=== PATIENT | male | born 1995 ===

== ENCOUNTER 2020-03-15 15:10 | Outpatient (CLI) | payer OTHER ==
--- NOTE | 2020-03-15 15:57 | SLEEP CARE CONSULTATION ---
Information from patient questionnaire entered by Brianne Dinh. I have reviewed and concur with the information entered by Brianne Dinh. This document represents the service I personally performed and the decisions made by me, Abner Blanc MD, [facility]. History of Present Illness Service Date and Time: 03/15/2020 1510 Reason for Visit: New patient, Previously diagnosed sleep apnea, sleep apnea on CPAP therapy (*BiPap) Chief Complaint: reports: Fatigue, Other (sleep apnea) Date of Onset: 2016 Usual bedtime: [id number] Time it takes to fall asleep: 1-10 minutes Snores at night: Yes Observed to quit breathing while asleep: Yes Sleeps alone due to snoring: No Number of times waking at night: 0-2 Reasons for waking at night: reports: Bathroom, Other (bloated stomach) Toss, Turn, or Twitch while sleeping: Yes Recalls having dreams: Yes Usually gets out of bed at: 0450 weekday, [id number]+ weekends Feels refreshed in the morning: No Morning headache: Yes (sometimes) Sleepy or fatigued during the day: Yes Ever fallen asleep while driving: No Takes day naps: Yes Dreams during day naps: Yes Prior sleep studies: Yes Year and Where: 2016 [place], [place] Type of Sleep Study: Polysomnography Additional HPI information: I had the pleasure of seeing Mr. Spicer today regarding obstructive sleep apnea-hypopnea. As you know, he is a 24 year old gentleman who was diagnosed with the sleep-disordered breathing at [facility] in [place], [place] in 2017. He recalls the AHI to be 54. He was prescribed a BiPAP set at 12/8 cmH2O. He uses it most of the time. He says it helps with snoring. He complains of aerophagia. Compliance/efficacy report shows usage in 68 out of the past 90 nights, averaging 5.7 hours a night. The > 4 hour compliance rate for the past 30 days is 62%. The residual AHI is 2.0 and average air leak is 0.2 L/minute. He wears a nasal mask. He gets his supplies from [employer]. 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 Patient is and lives in [place]. Have you smoked in the past 12 months: No Alcohol use: Yes Alcohol amount and frequency: occasionally Caffeine use: Yes Caffeine amount and frequency: coffee every day or every other day Family History Family history of sleep disordered breathing: Yes Family Hx Sleep Apnea: Father: Snoring Allergies and Home Medications Drug allergies reviewed: Yes Home medication list reviewed: Yes (Adderall) Review of Systems Cardiovascular: reports: chest pain (depending on sleep position) Respiratory: denies: shortness of breath, wheeze, sputum production, chronic cough, other Gastrointestinal: reports: abdominal pain (only felt with air in belly (basketball belly)) Urinary: denies: incontinence, frequency, urgency, impotence, other Neurological: denies: headaches, seizure, head trauma, disorientation, speech dysfunction, gait or balance problems, fainting or unconsciousness, other Ear/Nose/Throat: reports: nasal congestion, sinus problems (lack of smell), dry mouth/throat (sometimes), wisdom teeth removed (1) Endocrine: reports: sluggishness, unexplained weakness Musculoskeletal: reports: joint pain, mobility problems (only left forarm when rotating) Immunologic: denies: sneezing, rash, itching, allergies to food or environment, other Physical Exam Vital signs obtained and entered by: To minimize the risk of COVID-19 exposure, detailed exam was not performed. Height: 5 ft 10 in Weight: 167 lb Body Mass Index: 23.9 BMI Classification: Healthy weight Impression and Plan IMPRESSION: 1. Obstructive Sleep Apnea-Hypopnea Syndrome, possibly severe, according to the patient. We will try to get hold of his sleep study report from [place]. He has decent BiPAP compliance. The pressure is effective but causes aerophagia. I will lower it. Other treatment options were discussed. Because he reports having enlarged tonsils, I recommend a referral to an ENT. Plan: 1. BiPAP lowered to 9/5 cmH2O. 2. Takes Adderall sparingly. 3. Consider an ENT referral. 4. Prescription made for supplies to set him up with a local DEXMA supplier. 5. Return for a follow up in one month. Visit Type: In Office Other Participants: Spouse/Significant Other Time Spent with Patient (minutes): 15 Provider Statement: I spent 100% of the Face to Face Visit with the patient with greater than 50% spent counseling the patient and coordination of care.
== END 2020-03-15 15:11 | disposition home or self-care (01) ==
LOC: SC 15:10
PROVIDERS: ATTEND Internal Medicine Pulmonary Disease
DX: G47.33 Obstructive sleep apnea (adult) (pediatric) (principal)
CPT/HCPCS: 99203; 99212

== ENCOUNTER 2020-04-12 17:36 | Outpatient (CLI) | payer OTHER ==
--- NOTE | 2020-04-12 10:51 | SLEEP CARE CONSULTATION ---
Information from patient questionnaire entered by Brianne Dinh. I have reviewed and concur with the information entered by Brianne Dinh. This document represents the service I personally performed and the decisions made by me, Clary Lechuga ARNP. History of Present Illness Service Date and Time: 04/12/2020 1020 Previous diagnosis: Severe, Obstructive Sleep Apnea-Hypopnea Syndrome Reason for follow up: other (1 month with pressure change) Equipment type: BiPAP Equipment obtained from: Other (has not got a local supplier yet, has list) Mask style: Nasal Backup mask available: Yes (other mask) Last cushion change: 1 week ago Prior sleep studies: Yes Year and Where: 2016 [place], [place] Type of Sleep Study: Polysomnography HPI additional information: WENCESLAO DAVALOS was diagnosed to have severe, AHI unknown, obstructive sleep apnea-hypopnea syndrome and visits today via Telehealth for BIPAP therapy one month pressure change follow-up. Sleep Study - Results Type of Sleep Study: Polysomnography Prior sleep studies: Yes Year and Where: 2016 [place], [place] CPAP Compliance Data - Data Reviewed with Patient Average duration of nightly device use: 6 hours 24 minutes Compliance rate %: 77 Current pressure setting (cmH2O): 9/5 Average residual AHI: 2.3 Average large leak: 3.1 L/min Subjective Patient concerns: reports: condensation in mask/hose (twice, changed humidity and it improved, changed to 2 from 4). denies: aerophagia, mask discomfort, air blowing in eyes, mask leak noise, nasal congestion, dry mouth, nose, throat, epistaxis, other Observed to snore while using device: No Current pressure setting perceived as: comfortable On therapy, patient: reports: sleeping better, awakening more refreshed, being more awake and alert during the day, more rested overall. denies: drowsiness wh ile driving Initial [place] Sleepiness Scale score: 18 (in 2019) Current [place] Sleepiness Scale score: 18 Allergies and Home Medications Drug allergies reviewed: Yes (NKDA) Home medication list reviewed: Yes (no changes) Review of Systems Review of systems same as previous: Yes (no changes) Physical Exam Vital signs obtained and entered by: Telehealth visit - no vitals obtained Height: 5 ft 10 in Impression and Plan 1. Obstructive Sleep Apnea-Hypopnea Syndrome, severe, with fair treatment compliance and good apnea control. On CPAP therapy, the patient has better sleep quality and is more rested overall. He is doing better with no aerophagia. He did have a couple of times with some condensation in the mask that resolved after he adjusted the humidity from 4 to 2 setting. I asked him about his previous study since I could not find one in his chart. Patient states that he brought a copy of his original sleep study in to our office and they made a copy. I will check with the office staff and see if we have this copy. We will contact patient if he needs to bring his copy in again so we may obtain a copy. Patient also asking about having his tonsils removed. He was advised to consult with his PCP for a referral to an ENT specialist for possible removal of his large tonsils. Patient's apnea severity and rationale for treatment to reduce apnea, improve sleep quality and reduce cardiovascular and cerebrovascular events was reviewed. I also reviewed the benefit of consistent device use of CPAP for his overall health and to reduce risks. * Continue auto BIPAP pressure at 9/5 cmH2O * Follow up with PCP for ENT referral * Notify me if snoring with mask or feeling that the pressure is too much or too little * Attempt to lose weight * Call this office if any problems using BIPAP * Return for follow up in 1 year, or sooner if concerns arise Visit Type: Telehealth Video Video Type: Doximity Patient Location: Home Location of Provider: Home Patient agrees and consents to this telehealth visit type: Yes Patient agrees to have their insurance billed: Yes Time Spent with Patient (minutes): 18 Provider Statement: I spent 100% of the Telehealth Video Call with the patient with greater than 50% spent counseling the patient and coordination of care.
== END 2020-04-12 17:37 | disposition home or self-care (01) ==
LOC: SC 17:36
PROVIDERS: ATTEND Nurse Practitioner Family
DX: G47.33 Obstructive sleep apnea (adult) (pediatric) (principal)

== ENCOUNTER 2021-03-06 22:48 | Emergency (ER) | payer OTHER ==
--- NOTE | 2021-03-06 23:28 | ED Physician Documentation ---
PD HPI CHEST PAIN - Stated complaint Stated Complaint: SOA, CHEST PRESSURE - Chief complaint Chief Complaint: Cardiac - History obtained from History obtained from: Patient - History of Present Illness Timing - onset: How many days ago (2) Timing - details: Abrupt onset, Now resolved, Intermittant Quality: Tightness, Sharp Location: Left chest Radiation: Back Improved by: Rest Worsened by: Inspiration Associated symptoms: No: Shortness of air, Diaphoresis, Palpitations, Cough Similar symptoms before: Has not had sx before Recently seen: Not recently seen - Additional information Additional information: c/o 2 days of episodic left chest pain that radiates around left lateral chest to left upper back. onset has been as frequent at rest as with exertion or activity. Distinct pleuritic component. Patient is not COVID vaccinated. Denies fever, cough, leg swelling. Review of Systems Constitutional: reports: Reviewed and negative Cardiac: reports: Chest pain / pressure. denies: Palpitations, Pedal edema, Calf pain Respiratory: reports: Reviewed and negative Musculoskeletal: denies: Extremity swelling PD PAST MEDICAL HISTORY - Past Medical History Past Medical History: Yes Respiratory: Sleep apnea, CPAP use - Past Surgical History Past Surgical History: No - Present Medications Home Medications: Ambulatory Orders Medication Instructions Recorded Confirmed Dextroamphetamine/Amphetamine 15 mg PO QID 03/06/21 03/06/21 [Adderall 15 mg Tablet] Esomeprazole Magnesium [Nexium 20 mg PO DAILY #14 03/07/21 24Hr] - Allergies Allergies/Adverse Reactions: Allergies Allergy/AdvReac Type Severity Reaction Status Date / Time No Known Drug Allergies Allergy Verified 03/06/21 23:12 - Social History Does the pt smoke?: No Smoking Status: Never smoker Does the pt drink ETOH?: No Does the pt have substance abuse?: No - Immunizations Immunizations are current?: No Immunizations: TDAP current <10years - POLST Patient has POLST: No PD ED PE NORMAL - Vitals Vital signs reviewed: Yes - General General: Alert and oriented X 3, No acute distress, Well developed/nourished - Cardiac Cardiac: RRR, No murmur, No gallop, No rub - Respiratory Respiratory: No respiratory distress, Clear bilaterally - Abdomen Abdomen: Soft, Non tender - Extremities Extremities: No edema Results - Vitals Vitals: Oxygen O2 Source Room air - EKG (time done) No standard instances Rate: Rate (enter#) (86) Rhythm: NSR [place]: Normal Intervals: Normal OR QRS: Normal Ischemia: Normal ST segments - Labs Labs: Laboratory Tests 03/07/21 03/07/21 03/07/21 00:05 00:05 00:05 WBC 8.1 RBC 5.09 Hgb 15.8 Hct 46.3 MCV 91.0 MCH 31.0 MCHC 34.1 RDW 11.5 L Plt Count 304 MPV 9.8 Neut # (Auto) 3.8 Lymph # (Auto) 3.1 [place] # (Auto) 0.8 Eos # (Auto) 0.3 Baso # (Auto) 0.1 Absolute Nucleated RBC 0.00 Nucleated RBC % 0.0 D-Dimer < 200.0 L Sodium 136 Potassium 3.5 Chloride 101 Carbon Dioxide 24 Anion Gap 11.0 BUN 16 Creatinine 1.0 Estimated GFR (MDRD) 90 Glucose 136 H Calcium 9.3 - Rads (name of study) chest xray Radiology: Prelim report reviewed, See rad report PD MEDICAL DECISION MAKING - ED course Complexity details: reviewed results, re-evaluated patient, considered differential, d/w patient ED course: presents with episodic pleuritic left chest pain. Unremarkable work-up including EKG, CXR, blood tests (including D-dimer). No ACS risk factors. He does not have pain at the time of H+P nor on reevaluation. Results d/w patient, advised to follow up with primary care provider. Return precautions reviewed Departure - Departure Disposition: 01 Home, Self Care Clinical Impression: Chest pain Qualifiers: Chest pain type: unspecified Qualified Code(s): R07.9 - Chest pain, unspecified Condition: Good Instructions: ED Chest Pain Atypical Unkn Cause Follow-Up: Natalie Greenwood MD [Primary Care Provider] - Within 3 Days Prescriptions: Esomeprazole Magnesium [Nexium 24Hr] 20 mg PO DAILY #14 Discharge Date/Time: 03/07/21 01:29
[2021-03-07 00:17] LABS: BASOPHILS # (AUTO) 0.1 10^3/uL (0.0-0.1); BASOPHILS % (AUTO) 1.2 %; EOSINOPHILS # (AUTO) 0.3 10^3/uL (0.0-0.7); EOSINOPHILS % (AUTO) 3.3 %; HCT - HEMATOCRIT 46.3 % (42.0-52.0); HGB - HEMOGLOBIN 15.8 g/dL (14.0-18.0); LYMPHOCYTES # (AUTO) 3.1 10^3/uL (1.5-3.5); LYMPHOCYTES % (AUTO) 38.1 %; MEAN CORPUSCULAR HGB CONC 34.1 g/dL (32.0-36.0); MEAN PLATELET VOLUME 9.8 fL (7.4-11.4); MONOCYTES # (AUTO) 0.8 10^3/uL (0.0-1.0); MONOCYTES % (AUTO) 10.1 %; NEUTROPHILS # (AUTO) 3.8 10^3/uL (1.5-6.6); NEUTROPHILS % (AUTO) 46.8 %; PLT - PLATELET COUNT 304 10^3/uL (130-450); RED BLOOD COUNT 5.09 10^6/uL (4.70-6.10); RED CELL DISTRIBUTION WIDTH 11.5 % (12.0-15.0); WHITE BLOOD COUNT 8.1 x10^3/uL (4.8-10.8)
[2021-03-07 00:27] LABS: CALCIUM 9.3 mg/dL (8.5-10.3); POTASSIUM 3.5 mmol/L (3.5-5.0)
[2021-03-07 01:11] VITALS: BP 144/88
--- NOTE | 2021-03-07 09:07 | XRAY Report ---
PROCEDURE: Chest 2 View X-Ray INDICATIONS: left pleuritic chest pain TECHNIQUE: 2 view(s) of the chest. COMPARISON: None. FINDINGS: Surgical changes and devices: None. Lungs and pleura: No pleural effusions or pneumothorax. Lungs are clear. Mediastinum: Mediastinal contours are normal. Heart size is normal. Bones and chest wall: No suspicious bony abnormalities. Soft tissues appear unremarkable. IMPRESSION: No evidence acute pulmonary process. Findings are concordant with preliminary interpretation provided by [facility]. Reviewed by: Anuj Upton MD on 03/07/2021 9:06 AM PDT Approved by: Anuj Upton MD on 03/07/2021 9:06 AM PDT Station ID: [id number]
== END 2021-03-07 01:29 | disposition home or self-care (01) ==
LOC: ED 22:48
DX: R07.89 Other chest pain (principal)
CPT/HCPCS: 36415; 80048; 85025; 85379; 93005; 99284

== ENCOUNTER 2021-09-29 11:05 | Outpatient (CLI) | payer OTHER ==
--- NOTE | 2021-09-29 11:47 | SLEEP CARE CONSULTATION ---
Information from patient questionnaire entered by Nolvia Hurtado MA. I have reviewed and concur with the information entered by Nolvia Hurtado MA. This document represents the service I personally performed and the decisions made by , Clary Lechuga ARNP. History of Present Illness Service Date and Time: 09/29/2021 1105 Previous diagnosis: Severe, Obstructive Sleep Apnea-Hypopnea Syndrome AHI: 34.3 (in 2016) Reason for follow up: annual (LAST SEEN 03/2020,NNOT USING CPAP OFTEN, ) Equipment type: BiPAP Equipment obtained from: Other (has not got a local supplier yet, has list) Mask style: Nasal Backup mask available: Yes (old mask) Prior sleep studies: Yes Year and Where: 2016 [place], [place] Type of Sleep Study: Polysomnography HPI additional information: WENCESLAO SPICER was diagnosed to have severe, AHI 34.3, obstructive sleep apnea- hypopnea syndrome and returned today for BIPAP therapy annual follow-up. Sleep Study - Results Type of Sleep Study: Polysomnography Prior sleep studies: Yes Year and Where: 2016 [place], [place] CPAP Compliance Data - Data Reviewed with Patient Average duration of nightly device use: 5 HOURS 31 MINUTES Compliance rate %: 7 (120 days) Current pressure setting (cmH2O): 9/5 Average residual AHI: 3.6 Central apnea: 1.7 Obstructive apnea: 1.7 Average large leak: 9.5 Compliance data discussion: He does not feel he is getting benefit from the CPAP. He will only use when makes him put on the mask because he is snoring or he is really fatigued. Subjective Missed days of use due to: reports: mask issues Patient concerns: reports: aerophagia (doesn't happen all the time), nasal congestion, dry mouth, nose, throat. denies: mask discomfort, air blowing in eyes, mask leak noise, condensation in mask/hose, epistaxis, other Observed to snore while using device: Yes Current pressure setting perceived as: comfortable On therapy, patient: reports: other (only using on nights he snores loudly due to fatigue). denies: sleeping better, awakening more refreshed, being more awake and alert during the day, more rested overall, drowsiness while driving Initial [place] Sleepiness Scale score: 18 (in 2019) Current [place] Sleepiness Scale score: 17 (09/2021) Allergies and Home Medications Home medication list reviewed: Yes (Adderrall) Allergy and home medication list: Allergies No Known Drug Allergies Allergy (Verified 03/06/21 23:12) Review of Systems Review of systems same as previous: Yes (jaw surgery approval is in process. need an updated sleep study, ()) Physical Exam Vital signs obtained and entered by: domingo hurtado cma aakaterin Blood Pressure: 120/79 (pulse 76, resp 16, right, ) Heart Rate: 77 O2 Saturation: 99 (n95) Height: 5 ft 9 in Weight: 159 lb Body Mass Index: 23.4 BMI Classification: Healthy weight Impression and Plan 1. Obstructive Sleep Apnea-Hypopnea Syndrome, severe, with poor treatment compliance and good apnea control. On BIPAP therapy, the patient has not felt like he gets better sleep or feels more rested. He will only use his device on nights his makes him put it on because he is snoring or if he is really fatigued. He states when he is really tired he seems to snore more. He has been getting aerophagia that wakes him up and is very uncomfortable too. He states he gets some nasal congestion when using the machine and mouth dryness. I asked about sleeping with mouth open and he thinks he may oral vent sometimes and this may add to the aerophagia. I encouraged him to try a chinstrap with his nasal mask to prevent oral venting and reduce aerophagia. Oral dryness and nasal congestion can be reduced by adjusting humidity setting higher or heated hose lower or by adjusting both settings. Verbal instructions given on how to change humidity and heated hose settings with rationale explaining why to change. He voiced understanding and agreement. He states he will continue to try to use the BIPAP. He also informed me he is being evaluated for surgery to correct/treat for his HARRIS. He needs a current sleep study for the surgeon to continue their evaluation for surgery. Mr. Spicer needs supplies to continue to use his BIPAP while waiting for approval on surgery for sleep apnea. I will have my academic services coordinator inform of DME options. A DWO prescription will then be made. Patient advised to contact this office if further supply problems. Patient's apnea severity and rationale for treatment to reduce apnea, improve sleep quality and reduce cardiovascular and cerebrovascular events was reviewed. * Continue BIPAP pressure at 9/5 cmH2O * Order Polysomnography for updated baseline * Transfer DME * Update supplies * Notify me if snoring with mask or feeling that the pressure is too much or too little * Call this office if any problems using BIPAP * Return for follow up after PSG, or sooner if concerns arise Counseling Topics: Spare mask Time Spent with Patient (minutes): 27
[2021-09-29 11:48] VITALS: BP 120/79
== END 2021-09-29 11:06 | disposition home or self-care (01) ==
LOC: SC 11:05
PROVIDERS: ATTEND Nurse Practitioner Family
DX: G47.33 Obstructive sleep apnea (adult) (pediatric) (principal)
CPT/HCPCS: 99212; 99213

== ENCOUNTER 2021-10-09 09:36 | Outpatient (CLI) | payer OTHER | END 2021-10-09 09:37 | disposition home or self-care (01) | LOC: SC 09:36 | PROVIDERS: ATTEND Nurse Practitioner Family | DX: G47.33 Obstructive sleep apnea (adult) (pediatric) (principal); R09.02 Hypoxemia; R00.0 Tachycardia, unspecified | CPT/HCPCS: 95806 ==

== ENCOUNTER 2021-10-27 10:49 | Outpatient (CLI) | payer OTHER ==
[2021-10-27 11:27] VITALS: BP 132/96
--- NOTE | 2021-10-27 11:27 | SLEEP CARE CONSULTATION ---
Information from patient questionnaire entered by Nolvia Reece MA. I have reviewed and concur with the information entered by Nolvia Reece MA. This document represents the service I personally performed and the decisions made by , Clary Lechuga ARNP. History of Present Illness Service Date and Time: 10/27/2021 1049 Accompanied by: Spouse Initial [place] Sleepiness Scale score: 18 (in 2019) Current [place] Sleepiness Scale score: 17 (10/2021) Additional HPI information: WENCESLAO DAVALOS returns for follow up and results of the recently performed home sleep study. I explained the pathophysiology behind obstructive sleep apnea. We then spent quite a bit of time discussing different treatment options. For mild obstructive sleep apnea, surgery and oral appliance are alternatives to nasal CPAP therapy but in moderate or severe cases, nasal CPAP is the most effective and reliable treatment. Because apnea is primarily in supine position, then positional management therapy could be effective. Methods discussed such as positioning with pillows to prevent supine sleep. Patient was cautioned about risks of drowsy driving until sleepiness symptoms resolve. Sleep Study - Results Type of Sleep Study: Home sleep study (F/U HOME STUDY, 10/09/2021 [facility] Prior sleep studies: Yes Year and Where: 2016 [place], [place] Polysomnography/Home Sleep Study results: Physician Impression: The quality of the study is good. The length of the study is adequate (> 240 minutes). Please also see the tabulated and graphic data. 1. Obstructive Sleep Apnea-Hypopnea (ICD-10 G47.33), severe, with an AHI of 41.0/hr and murphy SaO2 of 78%. During the study, the patient had 313 apneas (313 obstructive, 0 central, 0 mixed) and 5 hypopneas. The longest episode lasted 116.5 seconds. The respiratory events occurred almost exclusively during supine sleep (supine AHI was 51.9 and non-supine, 1.20). 2. Hypoxemia (ICD-10 R09.02), moderate, with the lowest oxygen saturation of 78 % and 28.3 minutes with SaO2 under 90%. Baseline oxygen saturation was normal (Average oxygen saturation was 96%). 3. Tachycardia, with maximum recorded heart rate of 133 beats per minute. Allergies and Home Medications Known drug allergies: No Drug allergies reviewed: Yes Home medication list reviewed: Yes (no changes) Allergy and home medication list: Allergies No Known Drug Allergies Allergy (Verified 03/06/21 23:12) Review of Systems Review of systems same as previous: Yes (no changes) Physical Exam Vital signs obtained and entered by: ANILA RIBERA Blood Pressure: 132/96 (LEFT, PULSE 67, RESP 14, ) Cuff size: wrist Heart Rate: 67 O2 Saturation: 98 (PAPER) Height: 5 ft 9 in Weight: 158 lb (WITH CLOTHES) Body Mass Index: 23.3 BMI Classification: Healthy weight Impression and Plan 1. Obstructive Sleep Apnea-Hypopnea Syndrome, severe, with lowest oxygen saturation of 78%. Patient returns for results of sleep study to verify diagnosis prior to sleep apnea surgery. Patient is going to continue to use her BIPAP. He still has some aerophagia in the morning but he started using a wedge pillow and this has improved a little. He states he is not sure if the surgery is going to happen and may have to continue with his BIPAP. I advised to continue with wedge pillow but to let me know if the aerophagia worsens. I recheck his compliance report because at the last visit he was at 7%. He used his device 6/30 days with all being >/= to 4 hours. He averaged 5 hours 45 minutes. His residual AHI is 4.3 and compliance is 20%. I will have him follow up in 1-2 months to recheck his compliance. He voiced agreement and understanding. Patient's apnea severity and rationale for treatment to reduce apnea, improve sleep quality and reduce cardiovascular and cerebrovascular events was reviewed. * Continue BIPAP pressure at 9/5 cmH2O * Notify me if snoring with mask or feeling that the pressure is too much or too little * Maintain a healthy weight * Call this office if any problems using BIPAP * Return for follow up in 1-2 months, or sooner if concerns arise Counseling Topics: Sleeping position, Weight control Visit Type: In Office Other Participants: Spouse/Significant Other Time Spent with Patient (minutes): 24 Provider Statement: I spent 100% of the Face to Face Visit with the patient with greater than 50% spent counseling the patient and coordination of care.
== END 2021-10-27 10:50 | disposition home or self-care (01) ==
LOC: SC 10:49
PROVIDERS: ATTEND Nurse Practitioner Family
DX: G47.33 Obstructive sleep apnea (adult) (pediatric) (principal)
CPT/HCPCS: 99212; 99213

== ENCOUNTER 2022-04-03 16:50 | Outpatient (CLI) | payer OTHER ==
--- NOTE | 2022-04-04 12:48 | MRI Report ---
PROCEDURE: Knee RT W/O INDICATIONS: KNEE PAIN TECHNIQUE: Noncontrast sagittal PD fast spin echo and T2 fast spin echo with fat saturation, sagittal 3-D gradie nt sequence with fat saturation; coronal T1 spin echo and PD fast spin echo with fat saturation, and axial PD fast spin echo with fat saturation through the knee. COMPARISON: None. FINDINGS: Image quality: Excellent. Menisci: The medial and lateral menisci demonstrate normal morphology and internal signal. The meni scal root ligaments appear intact. Cruciate ligaments: The anterior and posterior cruciate ligaments appear intact. Medial structures: The medial collateral ligament appears intact. The posterior oblique ligament, s emimembranosus tendon insertions, and oblique popliteal ligament, and meniscocapsular junction appear intact. Visualized portions of the pes anserinus tendons appear normal. No abnormal bursal fluid. Lateral structures: The lateral collateral ligament, long and short heads of the biceps femoris tend on appear intact. The popliteus tendon appears normal; the popliteofibular ligament appears intact. The posterosuperior and anteroinferior popliteomeniscal fascicles appear intact. The arcuate and fa bellofibular ligaments appear intact, around the lateral inferior geniculate artery. Iliotibial band appears normal. Anterior structures: The quadriceps and patellar tendons appear intact. Patellar alignment is isiah l. No femoral trochlear dysplasia or ventral trochlear prominence. No edema in the infrapatellar fa t pad. Bones and cartilage: Mild marrow edema involving lateral periphery of proximal tibia and adjacent med ial aspect of fibula head is seen without discrete fracture line. No other area of abnormal marrow si gnal. The cartilage of the medial and lateral femorotibial compartments, as well as the patellofemora l compartment, appears normal in thickness. Joint space: There is physiologic knee joint fluid. No Crawford's cyst. Normal appearing synovial pli are incidentally noted. IMPRESSION: 1. Suggestion of contusion involving proximal tibiofibular articulation. No fracture or dislocation. No significant joint effusion. Articulating cartilages are intact. 2. Cruciate ligaments are intact. Medial and lateral collateral ligaments are within normal limits. 3. No evidence of focal meniscal tear. Reviewed by: Gordo Pollard MD on 04/04/2022 12:46 PM PDT Approved by: Gordo Pollard MD on 04/04/2022 12:46 PM PDT Station ID: [id number]
== END 2022-04-03 16:51 | disposition home or self-care (01) ==
LOC: DI 16:50
PROVIDERS: ATTEND Student in an Organized Health Care Education/Training Program
DX: M25.561 Pain in right knee (principal)